=== PATIENT | male | born 1955 | race Caucasian/White ===

== ENCOUNTER → 2020-04-04 | Outpatient (CLI) | payer BC, MEDICARE, OTHER ==
[~2020-04-04] MED LIST: BUPR300T PO; CEPH500C PO; HOLD METFORMIN - RECEIVED CONTRAST 20 ML VIAL IV SCH; HYDR-3720 PO; IOHEXOL 350 MG/ML 100 ML (OMNIPAQUE 350) VIAL IV ONE; LVT.05T PO; NS 100 ML (IVPB) BAG IV ONE
--- NOTE | 2020-04-04 08:55 | Diagnostic Imaging Report ---
PROCEDURE: CT sinuses without contrast TECHNIQUE: Multiple contiguous axial images were obtained through the sinuses without the use of intravenous contrast. Coronal and sagittal reformations were then performed. Auto Exposure Controls were utilized during the CT exam to meet ALARA standards for radiation dose reduction. INDICATION: Chronic sinusitis. The nasal septum is midline and the nasal bones unremarkable. The frontal sinuses, the ethmoid air cells, the sphenoid sinuses and the maxillary sinuses are all clear. No air-fluid levels. No membrane thickening. There is no mastoid effusion. The middle ear cavities unremarkable. The nasal turbinates unremarkable. IMPRESSION: Unremarkable CT sinuses. Dictated by: Dictated on workstation # [id number]
--- NOTE | 2020-04-04 09:02 | Diagnostic Imaging Report ---
PROCEDURE: CT neck soft tissue with contrast. TECHNIQUE: Multiple contiguous axial images were obtained through the neck after the administration of contrast. Auto Exposure Controls were utilized during the CT exam to meet ALARA standards for radiation dose reduction. INDICATION: Throat pain. Partially included in the [id number] is abnormal soft tissue like irregularity in the medial aspect of the right upper lobe with at least partial atelectasis of the right upper lobe likely on a postobstructive basis. While the abnormalities only partially visualized at this exam it is worrisome for possible lung cancer and a dedicated chest CT recommended. Supraclavicular fossa in the cervical lymph node chains unremarkable. While there is extensive degenerative change to the spine there was no suspicious lytic or sclerotic bony lesion. The degenerative changes result in chronic severe bony canal stenosis at C5-C6 and moderate severity of canal stenosis at the C3-C4 and C4-C5 levels. A multilevel bony foraminal stenoses present. The nasopharynx, oropharynx and hypopharynx appeared unremarkable. The epiglottis and aryepiglottic folds unremarkable. The prevertebral and retropharyngeal spaces unremarkable. The visualized intracranial structures and central skull base unremarkable. IMPRESSION: Partially visualized right upper lobe mass and small apical pleural effusion worrisome for lung cancer dedicated chest CT recommended. No findings to suggest cervical involvement by metastatic disease and no acute pathology in the neck with chronic degenerative changes resulting in multilevel cervical canal and foraminal stenosis noted. Suspicion for lung cancer relayed by phone to the ordering physician. Dictated by: Dictated on workstation # [id number]
== END ==
LOC: RAD 08:15
PROVIDERS: ATTEND Internal Medicine
DX: J32.1 Chronic frontal sinusitis (principal); J90 Pleural effusion, not elsewhere classified; R91.8 Other nonspecific abnormal finding of lung field
CPT/HCPCS: 70486; 70491

== ENCOUNTER → 2020-04-07 | Outpatient (CLI) | payer MEDICARE ==
[~2020-04-07] MED LIST changes: +ALPR0.5T7 PO; +LEVO50TA6 PO; +PANT40TA52 PO
--- NOTE | 2020-04-07 13:53 | Diagnostic Imaging Report ---
PROCEDURE: CT chest with contrast only. TECHNIQUE: Multiple contiguous axial images were obtained through the chest after administration of intravenous contrast. Auto Exposure Controls were utilized during the CT exam to meet ALARA standards for radiation dose reduction. INDICATION: Acute pulmonary edema. COMPARISON: CT of the neck dated 04/04/2020. FINDINGS: Large rounded soft tissue mass lesion is noted within the right upper lobe with resulting partial collapse of the right upper lobe. This measures 8.0 x 5.6 x 7.7 cm. Adjacent small amount of pleural fluid is noted within the right apical region. Additional 1.6 x 0.8 cm soft tissue nodule is noted within the medial last of the right lower lobe within the azygoesophageal recess. There is resulting narrowing and obstruction of several right upper lobe bronchi as well as right upper lobe pulmonary arteries. No additional adenopathy within the chest. Calcified nonenlarged AP window lymph node is present. No aneurysmal dilatation of the thoracic aorta. The heart is within normal limits in size. No pericardial effusion. No significant left pleural effusion. Moderate background emphysematous changes. No pneumothorax. The left lung is clear with focal pulmonary opacity or nodule. Scattered calcifications are noted about the periphery of the liver and spleen. A few calcified hepatic granuloma are present. The visualized upper abdomen is otherwise unremarkable. Scattered osseous degenerative changes without acute osseous abnormality. IMPRESSION: Large right upper lobe mass lesion with resulting partial collapse of the right upper lobe is present which is concerning for malignancy until proven otherwise. Recommend CT-guided biopsy for further evaluation. Additional 1.6 cm pulmonary nodule within the medial aspect of the right lower lobe may relate to an additional neoplasm. Small right apical pleural effusion. Moderate background emphysematous changes. Additional findings as described above. Report was called to Dr. Sam by joshua at 1:53pm. Dictated by: Dictated on workstation # [id number]
== END ==
LOC: RAD 09:45
PROVIDERS: ATTEND Internal Medicine
DX: J81.0 Acute pulmonary edema (principal); R91.1 Solitary pulmonary nodule; R91.8 Other nonspecific abnormal finding of lung field
CPT/HCPCS: 71260

== ENCOUNTER 2020-04-12 05:41 | Outpatient (RCR) | payer MEDICARE ==
[~2020-04-12] VITALS: Ht 182.9 cm; Wt 63.6 kg
== END 2020-04-12 11:01 | disposition home or self-care (01) ==
LOC: PREOP 05:41
PROVIDERS: ATTEND Internal Medicine Critical Care Medicine
DX: Z01.812 Encounter for preprocedural laboratory examination (principal); R91.8 Other nonspecific abnormal finding of lung field; Z20.828 Contact with and (suspected) exposure to other viral communicable diseases
CPT/HCPCS: 87635

== ENCOUNTER → 2020-04-12 | Outpatient (CLI) | payer MEDICARE ==
[~2020-04-12] MED LIST changes: -HOLD METFORMIN - RECEIVED CONTRAST 20 ML VIAL IV SCH; -IOHEXOL 350 MG/ML 100 ML (OMNIPAQUE 350) VIAL IV ONE; -NS 100 ML (IVPB) BAG IV ONE
--- NOTE | 2020-04-13 09:49 | Diagnostic Imaging Report ---
INDICATION: Lung mass right upper lobe. TECHNIQUE: The serum blood glucose level at the time of injection was 90 mg/dL. The patient was administered 14.4 mCi of F-18 FDG intravenously in the left antecubital location and PET imaging was performed from the top of the skull to the mid thighs. A noncontrast CT was also performed for attenuation correction and anatomic correlation. COMPARISON: Correlation is made with a conventional CT chest from 04/07/2020. No prior PET study is available for comparison. FINDINGS: There is symmetric activity throughout the brain. The soft tissues of the neck are unremarkable. There is an intensely hypermetabolic mass in the right upper lobe extending to the right hilum with an SUV max of approximately 15.5. A second irregular hypermetabolic mass in the medial right lower lobe demonstrates an SUV max of 6.2. The left hilum is unremarkable. No other pulmonary parenchymal areas of hypermetabolism are seen. Physiologic activity throughout the GI and tracts of the abdomen and pelvis are noted. No other hypermetabolic foci are seen. IMPRESSION: Large hypermetabolic right upper lobe mass, suggestive of bronchogenic carcinoma. There is a separate smaller hypermetabolic focus in the right lower lobe centrally which could represent a metastatic lesion. No other significant abnormality is detected. Dictated by: Dictated on workstation # [id number]
== END ==
LOC: RAD 11:15
PROVIDERS: ATTEND Nurse Practitioner Family
DX: R91.8 Other nonspecific abnormal finding of lung field (principal)
CPT/HCPCS: 78815; A9552

== ENCOUNTER 2020-04-13 07:54 | Day surgery (SDC) | payer MEDICARE, OTHER ==
[2020-04-13] VITALS (8 sets, daily range): BP systolic 92–132; BP diastolic 53–85
[~2020-04-13] VITALS: Ht 182.9 cm; Wt 63.6 kg
[~2020-04-13 07:54] MED LIST changes: +LACTATED RINGERS 1,000 ML IV ONE
[2020-04-13] MEDS ORDERED: LIDOCAINE PF 1% 2 ML VIAL IJ ONE (07:55)
[2020-04-13] MEDS ORDERED: LIDOCAINE PF 2% 5 ML (XYLOCAINE) VIAL INJ ONE (07:55)
[2020-04-13] MEDS ORDERED: 0.9% SODIUM CHLORIDE PF INJ 10 ML VIAL IV ONE (07:55)
[2020-04-13] MEDS ORDERED: EPINEPHrine INJECTION 1 MG/ML AMP IJ ONE (07:55)
[2020-04-13] MEDS ORDERED: LACTATED RINGERS 1,000 ML IV PRN (08:15)
--- NOTE | 2020-04-13 08:32 | Pulmonary Procedures ---
Pulmonary Procedures Date of Procedure Date of Service: Apr 13, 2020 Bronch Bronchoscopy and EBUS with Fleuroscopy, RUL wash, Thornton, transbronchial mass followed by EBUS with bx of station 4R lymph nodes Preop DX: RUL mass with mediastinal lymphadenopath PostOP DX: RUL mass with endobronchial mass occluding RUL bronchus. Complications: None Pt was sedated per anesthesia. Bronchoscopy was advanced through the ET tube and an anatomical undertaken down to the segmental bronchi bilaterally. Bronchoscopy and EBUS with Fleuroscopy, RUL wash, Thornton, transbronchial mass followed by EBUS with bx of station 4R lymph nodes were sampled via needle bx under US guidance. Pt tolerated procedure well. No complications noted. DARYL CONRAD DO Apr 13, 2020 08:32
--- NOTE | 2020-04-13 08:32 | Progress Note-Pre Operative ---
Pre-Operative Progress Note H&P Reviewed The H&P was reviewed, patient examined and no changes noted. Date H&P Reviewed: Apr 13, 2020 Time H&P Reviewed: 08:31 Pre-Operative Diagnosis: Lung mass DARYL CONRAD DO Apr 13, 2020 08:32
[2020-04-13] MEDS ORDERED: SUCCINYLCHOLINE INJ 100 MG/5 ML SYR/VIAL ONE (08:36)
[2020-04-13] MEDS ORDERED: proPOfol 200 MG/20 ML (DIPRIVAN) VIAL IV ONE (08:36)
[2020-04-13] MEDS ORDERED: SEVOFLURANE (ULTANE) 15 ML INHAL SOLN ONE ×2 (08:36→10:08)
[2020-04-13] MEDS ORDERED: ONDANSETRON 4 MG/2 ML (SDV) Z0FRAN ONE (08:37)
[2020-04-13] MEDS ORDERED: LIDOCAINE PF 2% 5 ML (XYLOCAINE) VIAL ONE (08:37)
[2020-04-13] MEDS ORDERED: fentaNYL INJECTION 100 MCG/2 ML AMP ONE (08:42)
[2020-04-13] MEDS ORDERED: MIDAZOLAM 2 MG/2 ML (VERSED) VIAL ONE (08:42)
[2020-04-13] MEDS ORDERED: PHENYLEPHRINE 100 MCG/ML 10 ML (ANESTHESIA) SYR ONE (09:00)
[2020-04-13] MEDS ORDERED: ROCURONIUM 10 MG/ML 5 ML SYRINGE IV ONE (09:00)
--- NOTE | 2020-04-13 10:16 | Diagnostic Imaging Report ---
INDICATION: Post bronchoscopy Frontal chest obtained at 1001 a.m. There is a large right suprahilar mass, with postobstructive atelectasis in the right upper lobe. There is no pneumothorax following bronchoscopy. There is no significant pleural fluid. Left lung appears clear. IMPRESSION: Large right suprahilar mass with postobstructive atelectasis of the right upper lobe. No pneumothorax or pleural fluid following bronchoscopy. Dictated by: Dictated on workstation # [id number]
--- NOTE | 2020-04-13 10:21 | Diagnostic Imaging Report ---
INDICATION: Bronchoscopy, right lung lesion. FINDINGS: An intraoperative fluoroscopic view was obtained during bronchoscopy by Dr. Carroll. The single view demonstrates a bronchoscope with needle overlying the right upper lobe mass. 6 seconds of fluoroscopy time was used. IMPRESSION: Intraoperative fluoroscopic use during bronchoscopy by Dr. Carroll. Dictated by: Dictated on workstation # [id number]
== END 2020-04-13 11:10 | disposition home or self-care (01) ==
LOC: ENDO 07:54
PROVIDERS: ATTEND Internal Medicine Critical Care Medicine
DX: C34.11 Malignant neoplasm of upper lobe, right bronchus or lung (principal); F41.9 Anxiety disorder, unspecified; K21.9 Gastro-esophageal reflux disease without esophagitis; Z79.899 Other long term (current) drug therapy; Z87.891 Personal history of nicotine dependence
CPT/HCPCS: 71045; 76000; 87015; 87070; 87101; 87116; 87205; 87206; 94640